=== PATIENT | male | born 1995 | race American Indian/Alaskan Native ===

== ENCOUNTER 2017-09-02 13:21 | Outpatient (CLI) | payer BC ==
--- NOTE | 2017-09-02 14:42 | XRay Report ---
RIGHT SHOULDER, 3 VIEWS: HISTORY: right shoulder pain. Normal bone mineralization. No acute osseous injury or joint pathology is detected. The soft tissues are unremarkable. IMPRESSION: Right shoulder within normal limits.
--- NOTE | 2017-09-02 14:42 | XRay Report ---
LUMBOSACRAL SPINE, FIVE VIEWS: HISTORY: Back pain. Views of the lumbosacral spine demonstrate normal bony alignment, vertebral height and interspace distances. Oblique views show patent foramina and normal apophyseal joint alignment. IMPRESSION: Normal study.
--- NOTE | 2017-09-02 14:43 | XRay Report ---
THORACIC SPINE, 2 VIEWS: HISTORY: back pain. Normal bone mineralization. No evidence for compression deformity, malalignment, or bone lesion. The posterior ribs are intact. The paraspinal soft tissues are within normal limits. IMPRESSION: Thoracic spine within normal limits.
== END 2017-09-02 13:22 | disposition home or self-care (01) ==
LOC: XRAY 13:21
DX: M54.5 Low back pain (principal); M54.6 Pain in thoracic spine; M25.511 Pain in right shoulder
CPT/HCPCS: 72072; 72110

== ENCOUNTER 2018-12-02 13:29 | Outpatient (CLI) | payer BC ==
--- NOTE | 2018-12-02 15:13 | XRay Report ---
ROUTINE CHEST, TWO VIEWS: HISTORY: Mycoplasma pneumonia. There is subtle infiltration in the medial left lower lobe behind the heart which could represent pneumonia. The remainder of the lungs are clear. No pleural effusion or pneumothorax. Normal heart and mediastinal structures. Normal bony thorax. IMPRESSION: Subtle left lower lobe infiltrate.
== END 2018-12-02 13:30 | disposition home or self-care (01) ==
LOC: XRAY 13:29
DX: B96.0 Mycoplasma pneumoniae [M. pneumoniae] as the cause of diseases classified elsewhere (principal)
CPT/HCPCS: 71046